=== PATIENT | female | born 2000 | race American Indian/Alaskan Native ===

== ENCOUNTER 2021-10-01 23:15 | Emergency (ER) | payer MEDICAID ==
[2021-10-01 23:59] VITALS: BP 138/110
--- NOTE | 2021-10-02 00:05 | Emergency Department Report ---
ED General Adult HPI - General Chief complaint: Anxiety Stated complaint: Having trouble eating PUI?: No Time Seen by Provider: 10/02/21 00:01 Source: patient, RN notes reviewed Mode of arrival: Ambulatory Limitations: No Limitations - History of Present Illness Initial comments: The patient was evaluated in the emergency department for symptoms described in the history of present illness. He/she was evaluated in the context of the global COVID-19 pandemic, which necessitated consideration that the patient might be at risk for infection with the virus that causes COVID-19. Institutional protocols and algorithms that pertain to the evaluation of patients at risk for COVID-19 are in a state of rapid change based on info rmation released by regulatory bodies including the CDC and federal and state organizations. These policies and algorithms were followed during the patient's care in the emergency department. Please note that these policies, procedures and recommendations changed on a rapid basis. The patient is a 21-year-old female. She states that she is not and also reports that she has not delivered her given in the past 6 weeks. She recently relocated to [place] from the [facility], she does not have a local primary care doctor, and her past medical history includes not being vacci nated against COVID-19, and recreational marijuana use. The patient presents to the ER today with a complaint of feeling anxious, and occasionally having trouble eating. She denies physical pain. She denies loss of taste and smell. She denies overdose, homicidality and suicidality. She was given apple juice and crackers by myself. The emergency room, and felt improved. -: days(s), week(s) Consistency: intermittent Improves with: none Worsens with: none Associated Symptoms: denies other symptoms - Related Data Allergies Allergy/AdvReac Type Severity Reaction Status Date / Time No Known Allergies Allergy Verified 10/01/21 23:59 ED Review of Systems ROS: Stated complaint: ANXIETY Other details as noted in HPI Constitutional: denies: fever Eyes: denies: eye discharge ENT: denies: epistaxis Respiratory: denies: cough Cardiovascular: denies: chest pain Gastrointestinal: denies: abdominal pain, vomiting, diarrhea Genitourinary: denies: dysuria Neurological: weakness Psychiatric: anxiety. denies: auditory hallucinations, visual hallucinations, homicidal thoughts, suicidal thoughts ED Past Medical Hx - Past Medical History Hx Psychiatric Treatment: Yes (anxiety) - Surgical History Past Surgical History?: No ED Physical Exam - General Limitations: No Limitations General appearance: alert, anxious - Head Head exam: Present: atraumatic, normocephalic - Eye Eye exam: Present: normal appearance, EOMI - ENT ENT exam: Present: normal exam, normal orophraynx, mucous membranes moist, normal external ear exam - Neck Neck exam: Present: normal inspection, full ROM. Absent: tenderness, mening ismus - Respiratory Respiratory exam: Present: normal lung sounds bilaterally. Absent: respiratory distress, wheezes, rales, rhonchi, stridor, decreased breath sounds - Cardiovascular Cardiovascular Exam: Present: regular rate, normal rhythm, normal heart sounds. Absent: bradycardia, tachycardia, irregular rhythm, systolic murmur, diastolic murmur, rubs, gallop - GI/Abdominal GI/Abdominal exam: Present: soft. Absent: distended, tenderness, guarding, rebound, rigid, pulsatile mass - Extremities Exam Extremities exam: Present: normal inspection, full ROM, other (2+ pulses noted in the bilateral upper extremities. There is normal bony tenderness. The muscular compartments are soft. The pelvis is stable.). Absent: pedal edema, calf tenderness - Back Exam Back exam: Present: normal inspection, full ROM. Absent: tenderness, CVA tenderness (R), CVA tenderness (L), paraspinal tenderness, vertebral tenderness - Neurological Exam Neurological exam: Present: alert, oriented X3, normal gait, other (No facial droop. Tongue midline. Extraocular movements intact bilaterally. Facial sensation intact to light touch in V1, V2, V3 distribution bilaterally. 5 and a 5 strength in 4 extremities. Sensation intact to light touch in 4 extremities.). Absent: motor sensory deficit - Psychiatric Psychiatric exam: Present: anxious. Absent: homicidal ideation, suicidal ideation - Skin Skin exam: Present: warm, dry, intact, normal color. Absent: rash ED Course Vital Signs 10/01/21 23:56 Temperature 97.6 F Pulse Rate 83 Respiratory 22 Rate Blood Pressure 138/110 O2 Sat by Pulse 95 Oximetry ED Medical Decision Making - Lab Data Vital Signs 10/01/21 23:56 Temperature 97.6 F Pulse Rate 83 Respiratory 22 Rate Blood Pressure 138/110 O2 Sat by Pulse 95 Oximetry - Medical Decision Making Differential diagnosis, including but not limited to: Encounter for behavioral health screening examination, encounter for medical screening examination, history of marijuana use, COVID-19 vaccination not complete Assessment and plan: 21-year-old female, who was afebrile, with reassuring vital signs, who is clinically sober, who is tolerating apple juice that I personally provided to her, without active nausea or vomiting, with a soft benign abdomen, who does not appear to have an emergent medical condition present at this time, who is also clinically sober with a GCS of 15, does not meet criteria for 1013 hold or involuntary hold, presenting with a complaint of anxiety, and occasional difficulty eating. Discussed diet lifestyle modifications. Outpatient follow- up. An emergent medical or psychiatric condition does not appear to be present at this time Critical care attestation.: If time is entered above; I have spent that time in minutes in the direct care of this critically ill patient, excluding procedure time. ED Disposition Clinical Impression: Encounter for medical screening examination, Encounter for behavioral health screening, COVID-19 vaccination not done, History of marijuana use Disposition: HOME / SELF CARE / HOMELESS Is pt being admited?: No Does the pt Need Aspirin: No Condition: Good Additional Instructions: Recommend that the patient complete outpatient COVID-19 vaccination series. Recommend that patient discontinue marijuana, tobacco, alcohol, and smoke consumption. Minimize/avoid consumption of Motrin, ibuprofen, Naprosyn, Aleve. Advance diet as tolerated, drink plenty of fluids, preferably water. Avoid consumption of processed foods, simple carbohydrates, and sugary drinks. Follow-up with a primary care doctor within the next 2 to 4 weeks. Please return to the emergency room right away with new pain, worsened pain, migration of pain, projectile vomiting, change in mental status, confusion, inability tolerate liquid feeds, new, worsened or different symptoms not present on the initial emergency room evaluation Referrals: [facility] [Provider Group] - 3-5 Days [facility] [Outside] - 3-5 Days
== END 2021-10-02 00:08 | disposition home or self-care (01) ==
LOC: ED 23:15
DX: Z00.00 Encounter for general adult medical examination without abnormal findings (principal); Z13.30 Encounter for screening examination for mental health and behavioral disorders, unspecified; F12.90 Cannabis use, unspecified, uncomplicated; F41.9 Anxiety disorder, unspecified
CPT/HCPCS: 99282